=== PATIENT | female | born 1995 | race Caucasian/White ===

== ENCOUNTER 2018-04-27 23:43 | Emergency (ER) | payer OTHER ==
[2018-04-28 00:56] LABS: ABS Basophils 0.1 10^3/ul (0-0.2); ABS Eosinophils 0.3 10^3/ul (0-0.6); ABS Lymphocytes 3.9 10^3/ul (1.0-4.8); ABS Monocytes 0.7 10^3/ul (0-0.8); ABS Neutrophils 9.5 10^3/ul (1.5-7.7); ABS Nucleated RBC 0 10^3/ul; Eosinophil % 1.8 % (0-6); Hematocrit 39 % (35-47); Hemoglobin 13.1 g/dl (12.0-16.0); Lymphocyte % 27.1 % (25-47); Mean Corpuscular HGB Conc 34 g/dl (31-36); Mean Corpuscular Hemoglobin 29 pg (27-31); Mean Corpuscular Volume 86 fL (80-97); Mean Platelet Volume 7.1 um3 (7.4-10.4); Nucleated Red Blood Cells % 0.2; Platelet Count 363 10^3/ul (150-450); Red Blood Count 4.54 10^6/ul (4.00-5.40); Red Cell Distribution Width 14 % (10.5-15); White Blood Count 14.5 10^3/ul (3.5-10.8)
--- NOTE | 2018-04-28 01:01 | RAD ---
EXAM: US Pelvis, Transvaginal CLINICAL HISTORY: 23 years old, female; Pain and signs and symptoms; Other: Vaginal bleeding for 2 months; Pelvic pain; Additional info: Menorrhagia TECHNIQUE: Real-time transvaginal pelvic ultrasound (complete) with image documentation. Transvaginal imaging was used for better evaluation of the endometrium and adnexa. COMPARISON: No relevant prior studies available. FINDINGS: Uterus/cervix: The uterus measures 5.7 x 2.9 x 4.8 cm. Endometrial stripe measures 4 mm. No myometrial mass. Right ovary: The right ovary measures 4.1 x 2.2 x 2.5 cm. Normal blood flow. Left ovary: The left ovary measures 3.6 x 1.7 x 2.6 cm. Normal blood flow. Free fluid: No free fluid. Bladder: Empty bladder which cannot be evaluated with this probe. IMPRESSION: No acute findings.
[2018-04-28 01:14] LABS: EGFR Non-African American 95.8 (>60)
[2018-04-28 02:17] VITALS: BP 150/95
--- NOTE | 2018-04-28 07:13 | ED ---
GI/ HPI - HPI Summary HPI Summary: Patient is a 23 y/o F w/ c/o vaginal bleeding and suprapubic cramping for the past two months. She notes an exacerbation of Sx today, which brought her to the ED. Patient reports going through 7 pads today. She denies N/V, urinary Sx, light-headedness and dizziness. Associated pain is rated 8/10 on triage, nothing is noted to aggravate/alleviate Sx. She took motrin this morning. She reports upcoming OBGYN appointment on may 18. Patient is not on control , is sexually active, does not use condoms, and is possibly . Patient smokes and has allergy to morphine. She notes no Hx of blood clots or easy bleeding. No FMHx of present Sx is reported. - History of Current Complaint Chief Complaint: EDVaginalBleeding Time Seen by Provider: 04/28/18 00:31 Stated Complaint: VAGINAL BLEEDING Hx Obtained From: Patient Onset/Duration: Started Weeks Ago - onset two months ago, Still Present, Worse Since - tonight Timing: Constant Current Severity: Severe - 8/10 Number of Pads per Day: 7 - today Pain Intensity: 0 Location of Pain: Suprapubic - cramping Pain Characteristics: Cramping Associated Signs and Symptoms: Positive: Other: - vaginal bleeding. Negative: Dizziness, Nausea, Vomiting, Lightheadedness - Allergy/Home Medications Allergies/Adverse Reactions: Allergies Allergy/AdvReac Type Severity Reaction Status Date / Time morphine Allergy Unknown Verified 04/28/18 00:40 Reaction Details PMH/Surg Hx/FS Hx/Imm Hx Sensory History: Denies: Hx Legally Blind, Hx Deafness Opthamlomology History: Denies: Hx Legally Blind EENT History: Denies: Hx Deafness - Immunization History Date of Tetanus Vaccine: unk Date of Influenza Vaccine: none Infectious Disease History: No Infectious Disease History: Denies: Traveled Outside the [place] in Last 30 Days - Family History Known Family History: Positive: Other - NEGATIVE: FMHx of excessive vaginal bleeding/cramping - Social History Alcohol Use: Occasionally Substance Use Type: Reports: None Smoking Status (MU): Light Every Day Tobacco Smoker Review of Systems Negative: Vomiting, Nausea Positive: other - NEGATIVE: urinary Sx POSITIVE: excessive vaginal bleeding and suprapubic cramping Neurological: Other - NEGATIVE: dizziness, light-headedness All Other Systems Reviewed And Are Negative: Yes Physical Exam - Summary Physical Exam Summary: Appearance: Well appearing, no pain distress Skin: warm, dry, reflects adequate perfusion Head/face: normal Eyes: EOMI, MIKE ENT: normal Neck: supple, non-tender Respiratory: CTA, breath sounds present Cardiovascular: RRR, pulses symmetrical Abdomen: non-tender, soft Bowel Sounds: present Musculoskeletal: normal, strength/ROM intact Neuro: normal, sensory motor intact, A&Ox3 Triage Information Reviewed: Yes Vital Signs On Initial Exam: Initial Vitals Temp Pulse Resp BP Pulse Ox 98.1 F 96 16 131/99 97 04/27/18 23:47 04/27/18 23:47 04/27/18 23:47 04/27/18 23:47 04/27/18 23:47 Vital Signs Reviewed: Yes Diagnostics - Vital Signs Vital Signs Temp Pulse Resp BP Pulse Ox 04/28/18 02:16 98.8 F 79 18 150/95 95 04/27/18 23:47 98.1 F 96 16 131/99 97 - Laboratory Lab Results: Lab Results 04/28/18 04/28/18 Range/Units 00:49 00:49 WBC 14.5 H (3.5-10.8) 10^3/ul RBC 4.54 (4.00-5.40) 10^6/ul Hgb 13.1 (12.0-16.0) g/dl Hct 39 (35-47) % MCV 86 (80-97) fL MCH 29 (27-31) pg MCHC 34 (31-36) g/dl RDW 14 (10.5-15) % Plt Count 363 (150-450) 10^3/ul MPV 7.1 L (7.4-10.4) um3 Neut % (Auto) 65.4 (38-83) % Lymph % (Auto) 27.1 (25-47) % Archuleta % (Auto) 4.7 (0-7) % Eos % (Auto) 1.8 (0-6) % Baso % (Auto) 1.0 (0-2) % Absolute Neuts (auto) 9.5 H (1.5-7.7) 10^3/ul Absolute Lymphs (auto) 3.9 (1.0-4.8) 10^3/ul Absolute Monos (auto) 0.7 (0-0.8) 10^3/ul Absolute Eos (auto) 0.3 (0-0.6) 10^3/ul Absolute Basos (auto) 0.1 (0-0.2) 10^3/ul Absolute Nucleated RBC 0 10^3/ul Nucleated RBC % 0.2 Sodium 137 (135-145) mmol/L Potassium 3.8 (3.5-5.0) mmol/L Chloride 104 (101-111) mmol/L Carbon Dioxide 25 (22-32) mmol/L Anion Gap 8 (2-11) mmol/L BUN 12 (6-24) mg/dL Creatinine 0.75 (0.51-0.95) mg/dL Est GFR ( Amer) 115.9 (>60) Est GFR (Non-Af Amer) 95.8 (>60) BUN/Creatinine Ratio 16.0 (8-20) Glucose 93 (70-100) mg/dL Calcium 9.6 (8.6-10.3) mg/dL Beta HCG, Quant < 0.60 mIU/mL Result Diagrams: 04/28/18 00:49 04/28/18 00:49 Lab Statement: Any lab studies that have been ordered have been reviewed, and results considered in the medical decision making process. - Ultrasound No standard instances Ultrasound Interpretation: No Acute Changes Ultrasound Interpretation Completed By: Radiologist - transvaginal US: no acute findings; this report was reviewed by ED physician Re-Evaluation - Re-Evaluation First Eval Re-Evaluation Time: 01:50 Comment: US negative, discussed results of labs and tests. Patient will be discharged to home and is agreeable with this plan. GIGU Course/Dx - Diagnoses Provider Diagnoses: Menorrhagia Discharge - Sign-Out/Discharge Documenting (check all that apply): Patient Departure - discharge - Discharge Plan Condition: Improved Disposition: HOME Prescriptions: Norgestimate-Eth Estradiol(NF) [Ortho Tri-Cyclen (NF)] 1 tab PO DAILY #1 packet Patient Education Materials: Menorrhagia (ED) Referrals: No Primary Care Phys,NOPCP [Primary Care Provider] - Additional Instructions: Follow-up with your [employer] as scheduled in April. Call for sooner appointment if needed. Return with increased pain, heavy bleeding, worse, new symptoms or other concerns. Tylenol, ibuprofen as needed for cramping. - Attestation Statements Document Initiated by Scribe: Yes Documenting Scribe: Rogelio Chacon Provider For Whom Scribe is Documenting (Include Credential): Joel Martinez MD Scribe Attestation: IRogelio, scribed for Joel Martinez MD on 04/28/18 at 0739.
== END 2018-04-28 02:16 | disposition home or self-care (01) ==
LOC: ED 23:43
DX: N92.0 Excessive and frequent menstruation with regular cycle (principal); N93.9 Abnormal uterine and vaginal bleeding, unspecified
CPT/HCPCS: 36415; 76830; 80048; 84702; 85025; 86703; 99282

== ENCOUNTER → 2019-03-23 08:55 | Day surgery (SDC) | payer OTHER ==
[~2019-03-23 08:55] MED LIST: Buffered Lidocaine 1% SYRIN* 1 ML/SYRINGE INTRADERM ONE; Famotidine IV* 10 MG/ML 2 ML (20 mg) IV ONE; Famotidine IV* 10 MG/ML 2 ML (20 mg) ONE; KETAMINE HCL* 50 MG/ML 10 ML VIAL ONE; Lactated Ringers 1000 ML Bag* 1,000 ML IV SCH; Lidocaine 2% PF * 5 ML VIAL ONE; Midazolam* 1 MG/ML 10 ML VIAL (10 MG) ONE; Naloxone* 0.4 MG/ML 1 ML VIAL IV PRN; Ondansetron INJ* 2 MG/ML VIAL IV PRN; Ondansetron INJ* 2 MG/ML VIAL ONE; Propofol* 10 MG/ML 20 ML BTL ONE; fentaNYL* 50 MCG/ML 2 ML VIAL (100 MCG VIAL) IV PRN; fentaNYL* 50 MCG/ML 2 ML VIAL (100 MCG VIAL) ONE
[2019-03-23 13:03] VITALS: BP 120/64
--- NOTE | 2019-03-23 21:23 | PRO ---
CC: Dr. Shadia Mathews; Dr. Roberto * ESOPHAGOGASTRODUODENOSCOPY REPORT: DATE OF PROCEDURE: 03/23/19 PRIMARY CARE PHYSICIAN: Dr. Shadia Mathews INDICATION FOR PROCEDURE: Pre-bariatric evaluation. PROCEDURE PERFORMED: Complete esophagogastroduodenoscopy with biopsies. MEDICATIONS GIVEN: Please see anesthesia record. DESCRIPTION OF THE PROCEDURE: After the EGD procedure including the risks, benefits, and alternatives, with the risks not limited to perforation, surgery, missed lesions and/or were explained to the patient, written informed consent was obtained, IV medication was given, and a bite-block was placed between the teeth. The adult Olympus gastroscope was then inserted into the patient's mouth into the oropharynx and tubular esophagus. At the GE junction, there was mild GE junction variability, less than a centimeter, this was biopsied. The scope was then advanced through the lower esophageal sphincter into the stomach. Direct views revealed antral gastritis. This was biopsied for SARAH testing. On retroflexion, no significant hiatal hernia was visualized. The scope was then advanced through the widely patent pylorus into the duodenal bulb, C loop, distal duodenum, and these were normal in appearance. The scope was then removed from the patient. She tolerated the procedure well. She returned to the recovery room in stable condition. IMPRESSION: 1. Complete esophagogastroduodenoscopy with biopsies. 2. Mild antral gastritis, biopsied for SARAH testing. 3. No significant hiatal hernia. 4. Otherwise normal EGD. RECOMMENDATIONS: The patient may follow up with Dr. Roberto. We will follow up on the results of biopsies. If there is H. pylori, we would treat it. [id number]/[facility] #: [id number] [facility]
== END | disposition home or self-care (01) ==
LOC: OR 08:55
PROVIDERS: ATTEND Internal Medicine Gastroenterology
DX: Z01.818 Encounter for other preprocedural examination (principal); E66.01 Morbid (severe) obesity due to excess calories; K21.9 Gastro-esophageal reflux disease without esophagitis; K29.70 Gastritis, unspecified, without bleeding; G47.33 Obstructive sleep apnea (adult) (pediatric); Z87.891 Personal history of nicotine dependence
CPT/HCPCS: 81025; 87077; 88305; J2250; J2405; J2704; J3010